=== PATIENT | male | born 1950 | race Caucasian/White ===

== ENCOUNTER → 2018-03-27 | Day surgery (SDC) | payer OTHER, MEDICARE ==
[~2018-03-27] MED LIST: LACTATED RINGER'S 1000 ML INJ 1,000 ML ONE; MIDAZOLAM HCL 5 MG/ML VIAL (1 ML) ONE; PROPOFOL 200 MG/20 ML AMP IV ONE; ceFAZolin INJ 1,000 MG VIAL ONE
--- NOTE | 2018-03-27 09:54 | TN ---
cc: Kale Jones MD DATE OF SURGERY: 03/27/2018 Corrected Copy: 03/27/18 PREOPERATIVE DIAGNOSIS: Left shoulder partial rotator cuff tear with circumferential labral tear with biceps tendinosis and glenoid chondromalacia. POSTOPERATIVE DIAGNOSIS: Left shoulder partial rotator cuff tear with circumferential labral tear with biceps tendinosis and glenoid chondromalacia. PROCEDURE PERFORMED: Left shoulder arthroscopic rotator cuff repair with subacromial decompression and partial acromioplasty with extensive debridement of the labrum with chondroplasty of the glenoid and biceps tenotomy. SURGEON: Kale Jones MD CORRECTIONAL PROBATION OFFICER: ELIZABETH Lieberman The surgical procedure was assisted by my Advanced Registered Nurse Practitioner. My RUBBER MILL OPERATOR presence was necessary throughout this case for the manipulation and positioning of the surgical extremity. My RUBBER MILL OPERATOR was assisting me throughout the duration of this procedure. The skill set of an Advanced Registered Nurse Practitioner was medically necessary to complete this procedure. During the surgical case, the surgical supervisor was working at the back table and the Advanced Registered Nurse Practitioner was directly assisting me. ANESTHESIA: Regional and general. PROCEDURE: The patient was brought back to the operative theater after good general anesthesia had been administered. The patient had general anesthesia administered once in the operative theater. The patient was placed into a lateral decubitus position with an axillary roll and a well padded down leg. The patient was placed into inline traction. The left upper extremity was prepped and draped in the usual sterile fashion. We gave intravenous Ancef. We made a standard posterior portal followed by anterior portal into the soft spot. We identified that the humeral head, did not have a significant amount of chondromalacia. There was just a small area of grade 2 chondromalacia; however, the glenoid had an area of grade 3 and 4 chondromalacia in the central inferior aspect. We probed this and found the cartilage to be very unstable, as there was a very large, thick flap. We used an oscillating shaver to debride this and remove this flap of cartilage. We found that The inferior labrum had a little bit of fraying, but it was very hypertrophic. It appeared to be fairly well fixed to the inferior glenoid. When we evaluated the rest of the labrum, we did find some type 1 tearing, but again, the labrum all circumferentially seemed to be fairly hypertrophied and larger than typical, but did not have an appearance of actual detachment from the glenoid itself. The subscapularis tendon was intact. The rotator cuff, for the most part, looked fairly well intact from the undersurface with just some minor fraying, but no obvious significant detachment. The biceps tendon itself was in very poor condition and had significant tendinosis, which was extensive throughout the tendon. There was a longitudinal split with significant fraying. Overall, the tendinosis encompassed approximately 80% of the tendon with some partial tearing as described. We decided to move forward with a tenotomy of the biceps tendon. We did this with the oscillating shaver and this was fairly easy as most of the tendon insertion site was very degenerative. There was only a small area that still had pretty good attachment which we resected. We did debride the superior labrum as well. I used an oscillating shaver, but kept the remaining portion of the labrum intact. We placed the arthroscope in the subacromial space. We did not find a significant amount of bursitis, just some mild bursitis, but there were a lot of adhesions and thickened bursal tissue which was attached to the subdeltoid recess, which was reflected. A very small amount of acromion needed to be resected using an oscillating shaver. We did find one central portion by the mid aspect of the supraspinatus tendon where there was a high-grade 80% partial thickness tear from the bursal side. We did complete this using the oscillating shaver and then we prepared the greater tuberosity using the shaver. We did a repair with this with a single FiberTape which was then anchored down using an Arthrex SwiveLock 4.75 in diameter with excellent purchase. Overall, the repair was excellent. The arthroscopic portals were closed with 2-0 Vicryl, followed by 3-0 nylon. The patient was placed into a sling and swathe. POSTOPERATIVE PLAN: Follow standard rotator cuff repair protocol. MD BILLIE Nicholas/MARY LOU , 09:35 AM , 09:52 AM
== END | disposition home or self-care (01) ==
LOC: ESDC 06:39
PROVIDERS: ATTEND Orthopaedic Surgery
DX: M75.112 Incomplete rotator cuff tear or rupture of left shoulder, not specified as traumatic (principal); M75.52 Bursitis of left shoulder; S43.432A Superior glenoid labrum lesion of left shoulder, initial encounter; M75.22 Bicipital tendinitis, left shoulder; M94.212 Chondromalacia, left shoulder
CPT/HCPCS: 01630; 01991; 29823; 29826; 29827; 64417; 76942; C1713; J0690; J2250; J7120